=== PATIENT | female | born 1960 | race Caucasian/White ===

== ENCOUNTER 2018-11-24 14:25 | Inpatient (IN) | payer SELFPAY ==
[~2018-11-24] VITALS: Ht 149.9 cm; Wt 63.5 kg
[2018-11-24 16:08] LABS: BASOPHILS % 0.7 % (0.0-2.0); EOSINOPHILS % 1.1 % (0.0-5.0); HEMATOCRIT. 36.8 % (36.0-48.0); HEMOGLOBIN. 12.4 g/dL (12.0-16.0); LYMPHOCYTES % 31.5 % (20.0-50.0); MEAN CORPUSCULAR HEMOGLOBIN 30.6 pg (28.0-32.0); MEAN CORPUSCULAR VOLUME 90.6 fL (81.0-99.0); MEAN PLATELET VOLUME 9.1 fl (7.4-10.4); MONOCYTES % 6.5 % (2.0-8.0); NEUTROPHILS % 60.2 % (40.0-76.0); PLATELET 217 x1000/uL (130-400); RED BLOOD CELL COUNT 4.07 mill/uL (4.2-5.4); RED CELL DISTRIBUTION WIDTH 14.6 % (11.6-14.6)
[2018-11-24 16:15] LABS: CHLORIDE 110 mEq/L (98-107)
[2018-11-24] MEDS ORDERED: ASPIRIN 325MG EC TABLET PO NR (17:00)
[2018-11-24] MEDS ORDERED: SODIUM CHLORIDE 0.9% 1,000 ML IV NR (17:00)
[2018-11-24] MEDS ORDERED: METOCLOPRAMIDE HCL 10MG/2ML VIAL IV NR (17:00)
[2018-11-24] MEDS ORDERED: DIPHENHYDRAMINE 50MG/ML VIAL IV NR (17:00)
[2018-11-24] MEDS ORDERED: GUAIFENESIN 200MG/10ML SUGAR FREE UDC PO PRN (18:45)
[2018-11-24] MEDS ORDERED: ONDANSETRON HCL 4MG/2ML INJ IV PRN (18:45)
[2018-11-24] MEDS ORDERED: BUTALBITAL/ACETAMINOPHEN/CAFFEINE 50/325/40MG TABLET PO PRN (18:45)
[2018-11-24] MEDS ORDERED: IPRATROPIUM/ALBUTEROL 0.5-3(2.5)MG/3ML NEB HHN PRN (18:45)
[2018-11-24] MEDS ORDERED: MAGNESIUM/ALUMINUM HYDROXIDE/SIMETHICONE 30ML UDC PO PRN (18:45)
[2018-11-24] MEDS ORDERED: CLONIDINE 0.1MG TABLET PO PRN (18:45)
[2018-11-24] MEDS ORDERED: ACETAMINOPHEN 325MG TABLET PO PRN (18:45)
[2018-11-24] MEDS ORDERED: NITROGLYCERIN 0.4MG TABLET SL SL PRN (18:45)
[2018-11-24] MEDS ORDERED: LORAZEPAM 0.5MG TABLET PO PRN (18:45)
[2018-11-24] MEDS ORDERED: DOCUSATE SODIUM 100MG CAPSULE PO PRN (18:45)
[2018-11-24] MEDS ORDERED: KETOROLAC 15MG/ML VIAL IV PRN (18:45)
[2018-11-24 22:00] VITALS: BP 125/74
[2018-11-24 23:19] VITALS: BP 110/70
[2018-11-24] MEDS: METOPROLOL TARTRATE 25MG TABLET PO SCH (23:45)
[2018-11-24] MEDS ORDERED: ZOLPIDEM TARTRATE 5MG TABLET PO PRN (23:45)
[2018-11-25] VITALS: BP 101/64
[2018-11-25 01:25] LABS: CREATINE KINASE MB FRACTION 4.2 ng/mL (0.5-3.6)
[2018-11-25 04:00] VITALS: BP 122/72
[2018-11-25 06:02] LABS: CREATINE KINASE MB FRACTION 3.9 ng/mL (0.5-3.6)
[2018-11-25] MEDS ORDERED: FAMOTIDINE 20MG TABLET PO SCH (09:00)
[2018-11-25] MEDS ORDERED: ASPIRIN 325MG EC TABLET PO SCH (09:00)
[2018-11-25] MEDS ORDERED: ENOXAPARIN 40MG/0.4ML SYR SUBCUT SCH (09:00)
[2018-11-25] MEDS: METOPROLOL TARTRATE 25MG TABLET PO SCH (09:27)
[2018-11-25 11:46] VITALS: BP 143/82
[2018-11-25] MEDS ORDERED: PNEUMOCOCCAL 23-VAL P-SAC VAC 0.5 ML IM ONE (12:00)
== END 2018-11-25 14:30 | disposition home or self-care (01) | DRG 351 ==
LOC: ER 14:25 → 5WST 17:41 → EDBEDREQ 17:43 → EDBEDREQTM 17:43 → ENRESERV 20:22
PROVIDERS: ADMIT Internal Medicine; ATTEND Internal Medicine
DX: M62.82 Rhabdomyolysis (principal); E83.51 Hypocalcemia; R07.89 Other chest pain; I25.10 Atherosclerotic heart disease of native coronary artery without angina pectoris; I10 Essential (primary) hypertension; R79.89 Other specified abnormal findings of blood chemistry; R51 Headache
CPT/HCPCS: 36415; 71045; 80061; 82550; 82553; 83036; 83880; 84484; 93005; 93970; 99285; J1200; J1650; J2765